=== PATIENT | male | born 1950 | race American Indian/Alaskan Native ===

== ENCOUNTER 2019-07-23 10:17 | Outpatient (CLI) | payer MEDICARE, OTHER ==
--- NOTE | 2019-07-23 12:53 | Magnetic Resonance Report ---
MR LE joint RT wo con INDICATION / CLINICAL INFORMATION: NATALIA PRIMARY OSTEOARTHRITIS. TECHNIQUE: Multiplanar, multisequence MR images were obtained. COMPARISON: None available. FINDINGS: There is moderate to advanced tricompartmental osteoarthrosis evidenced by joint space narrowing, car tilage thinning, and osteophyte formation. Cartilage loss is greatest at the patella where there is f ull-thickness near-complete cartilage loss. There is a degenerative tear body, posterior horn, and posterior root of the medial meniscus with ext rusion of the medial meniscus body and tiny flipped fragment into the medial gutter inferiorly (coron al image 14). No lateral meniscus tear is seen. Cruciate and collateral ligaments are intact, as is the extensor mechanism. No joint effusion is seen. No bursal fluid collections. A small ganglion cyst within Hoffa's fat. Bone marrow signals unremarkable aside from subchondral changes related to cartilage loss posterior l ateral tibial plateau and at the patella. IMPRESSION: 1. Moderate to advanced tricompartmental osteoarthrosis with degenerative tear of the medial meniscus , as above. There is advanced full-thickness cartilage loss of the patella. 2. No acute ligament injury. No joint effusion. Signer Name: Jaron Spicer MD Signed: 07/23/2019 12:49 PM Workstation Name: [id number]
== END 2019-07-23 10:18 | disposition home or self-care (01) ==
LOC: MRI 10:17
PROVIDERS: ATTEND Orthopaedic Surgery
DX: M17.0 Bilateral primary osteoarthritis of knee (principal)
CPT/HCPCS: 73721

== ENCOUNTER 2019-09-02 07:01 | Day surgery (SDC) | payer MEDICARE, OTHER ==
[2019-09-02 07:51] VITALS: BP 126/92
[2019-09-02] MEDS ORDERED: LIDOCAINE (1%) 10 MG/1 ML VIAL 20 ML MDV ONE (08:08)
[2019-09-02] MEDS ORDERED: BUPIVACAINE/PF (0.5%) 5 MG/1 ML 30 ML VIAL INFILTRATI ONE ×2 (08:08→08:59)
[2019-09-02] MEDS ORDERED: LIDOCAINE (1%) 10 MG/1 ML VIAL 20 ML MDV INFILTRATI ONE (08:54)
--- NOTE | 2019-09-02 10:24 | Procedure Note ---
Date of procedure: 09/02/19 Pre-op diagnosis: Right knee pain Post-op diagnosis: same Procedure: Right geniculate Nerve Block under C-arm fluroscopy procedure The patient taken to the operating room where he was place on the table supine with padded triangular pad placed along the potileal fossa. The right knee prepped and draped in usual sterile fashion. 22-gauge spinal needle used to locate areas for injection, the medial and lateral supracondylar ridges, 2 cm proximal to the superior pole of the patella as well as the medial border of the proximal tibia. These areas were anesthized using lidocaine 1% followed by placement of spinal needle near the medial, and lateral geniculate nerves. A mixture of marcaine and lidocaine injected into the deeper structures. There were no complications noted and he tolerated well. Anesthesia: local Surgeon: MATA BOYKIN Estimated blood loss: minimal Pathology: none Condition: stable Disposition: observation
--- NOTE | 2019-09-02 17:23 | Fluoroscopy Report ---
2 fluoroscopic images submitted Indication: Intraoperative localization Impression: 2 images of the right knee were submitted for documentation purposes with radiology invo lvement. Fluoroscopic guidance provided for a knee injection. Please refer to the operative note for complete details. Fluoroscopic time: 13 seconds Signer Name: Xavi Hylton MD Signed: 09/02/2019 5:19 PM Workstation Name: [id number]
== END 2019-09-02 07:02 | disposition home or self-care (01) ==
LOC: OR 07:01
PROVIDERS: ATTEND Orthopaedic Surgery
DX: M25.561 Pain in right knee (principal); M17.0 Bilateral primary osteoarthritis of knee; F41.9 Anxiety disorder, unspecified; F32.9 Major depressive disorder, single episode, unspecified; M81.0 Age-related osteoporosis without current pathological fracture; I10 Essential (primary) hypertension; N40.0 Benign prostatic hyperplasia without lower urinary tract symptoms; G47.30 Sleep apnea, unspecified; Z82.49 Family history of ischemic heart disease and other diseases of the circulatory system; Z83.3 Family history of diabetes mellitus; Z79.899 Other long term (current) drug therapy; Z87.891 Personal history of nicotine dependence
CPT/HCPCS: 77002